=== PATIENT | male | born 1965 | race American Indian/Alaskan Native ===

== ENCOUNTER 2017-10-07 12:08 | Emergency (ER) | payer MEDICAID, OTHER ==
[~2017-10-07] VITALS: Ht 177.8 cm; Wt 65.7 kg
[2017-10-07] MEDS ORDERED: albuterol 2.5 MG/3 ML nebule NEB ONE (18:10)
[2017-10-07] MEDS ORDERED: AZIT500T PO (18:21)
[2017-10-07] MEDS ORDERED: ALBU6.7H INH (18:21)
[2017-10-07] MEDS ORDERED: HYDR-569 PO (18:22)
[2017-10-07] MEDS ORDERED: azithromycin 250mg tablet PO ONE (18:25)
[2017-10-07 19:37] VITALS: BP 118/69
== END 2017-10-07 19:43 | disposition home or self-care (01) ==
LOC: ER 12:09
DX: J06.9 Acute upper respiratory infection, unspecified (principal); F17.200 Nicotine dependence, unspecified, uncomplicated; Z88.5 Allergy status to narcotic agent; Z88.8 Allergy status to other drugs, medicaments and biological substances
CPT/HCPCS: 71045; 94640; 94760; 99283

== ENCOUNTER 2017-12-01 15:29 | Emergency (ER) | payer MEDICAID, OTHER ==
[~2017-12-01] VITALS: Ht 177.8 cm; Wt 69.0 kg
[~2017-12-01 15:29] MED LIST: ALBU6.7H INH; HYDR-569 PO
[2017-12-01] MEDS ORDERED: dexamethasone sod phosphate 10mg/ml inj IM STA (19:30)
[2017-12-01] MEDS ORDERED: triamcinolone acetonide 40mg/ml inj IM ONE (19:30)
[2017-12-01 20:01] VITALS: BP 137/80
== END 2017-12-01 19:55 | disposition home or self-care (01) ==
LOC: ER 15:29
DX: R21 Rash and other nonspecific skin eruption (principal); Z88.5 Allergy status to narcotic agent
CPT/HCPCS: 96372; 99284; J1100; J3301